=== PATIENT | female | born 1985 | race Caucasian/White ===

== ENCOUNTER 2018-05-07 08:42 | Emergency (ER) | payer OTHER ==
[2018-05-07] MEDS ORDERED: SODIUM CHLORIDE 0.9% 1,000 ML IV ONE (09:23)
[2018-05-07] MEDS ORDERED: GLYCERIN ADULT SUPP PR STA (09:28)
--- NOTE | 2018-05-07 09:32 | ED Physician Documentation ---
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 [facility] yesterday to ER with 2 concerns 1) LMP January and + preg and has abd cramping - no care of any sort so far - no vag bleed 2) constipation for two days after a 2 day plane trip home - tried MOM X 1 s relief - cramps to abd and back with staringing to have BM, no rectal apin Review of Systems Constitutional: denies: Fever, Chills Cardiac: denies: Chest pain / pressure Respiratory: denies: Dyspnea GI: reports: Abdominal Pain, Constipation : reports: LMP (January), Now EGA Musculoskeletal: reports: Back pain Endocrine: denies: Easy bruising / bleeding Immunocompromised: denies: Immunocompromised PD PAST MEDICAL HISTORY - Past Medical History Past Medical History: No - Past Surgical History 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 - Present Medications Home Medications: Ambulatory Orders Medication Instructions Recorded Confirmed Docusate Sodium 250Mg Capsule 250 mg PO DAILY PRN #10 capsule 05/07/18 [Colace 250Mg Capsule] Pnv No.121/Iron/Folic Acid 1 each PO DAILY #30 tablet 05/07/18 [ Multivitamin Tablet] - Allergies Allergies/Adverse Reactions: Allergies Allergy/AdvReac Type Severity Reaction Status Date / Time codeine [Codeine] Allergy Intermediate Emesis Verified 09/24/13 22:08 flu vaccine Allergy Intermediate Rash Uncoded 09/24/13 22:09 - Social History Does the pt smoke?: Yes Smoking Status: Current some day smoker Does the pt drink ETOH?: No Does the pt have substance abuse?: No - Immunizations Immunizations are current?: Yes - POLST Patient has POLST: No PD ED PE NORMAL - Vitals Vital signs reviewed: Yes - Cardiac Cardiac: RRR - Respiratory Respiratory: No respiratory distress - Abdomen Abdomen: Soft, Non tender - Derm Derm: Normal color - Neuro Neuro: Alert and oriented X 3 Results - Vitals Vitals: Vital Signs - 24 hr 05/07/18 05/07/18 08:50 11:20 Temperature 36.2 C L 37.2 C Heart Rate 65 62 Respiratory 16 14 Rate Blood Pressure 124/70 112/74 O2 Saturation 100 100 Oxygen O2 Source Room air - Labs Labs: Laboratory Tests 05/07/18 05/07/18 05/07/18 09:30 09:30 09:30 WBC 7.5 RBC 4.05 L Hgb 13.3 Hct 38.6 MCV 95.3 MCH 32.9 H MCHC 34.5 RDW 13.5 Plt Count 184 MPV 10.6 Neut # (Auto) 5.4 Lymph # (Auto) 1.4 L [place] # (Auto) 0.5 Eos # (Auto) 0.1 Baso # (Auto) 0.0 Absolute Nucleated RBC 0.00 Nucleated RBC % 0.0 Sodium 134 L Potassium 3.6 Chloride 104 Carbon Dioxide 23 Anion Gap 7.0 BUN 6 Creatinine 0.8 Estimated GFR (MDRD) 83 L Glucose 94 Calcium 10.1 HCG, Quant 892640.00 - Rads (name of study) OB sono Radiology: See rad report (live IUP 8+1 EDC 12/16/18) PD MEDICAL DECISION MAKING - ED course ED course: glycerin and mag citrate and colace safe in preg - Sepsis Event Vital Signs: Vital Signs - 24 hr 05/07/18 05/07/18 08:50 11:20 Temperature 36.2 C L 37.2 C Heart Rate 65 62 Respiratory 16 14 Rate Blood Pressure 124/70 112/74 O2 Saturation 100 100 Oxygen O2 Source Room air Departure - Departure Disposition: 01 Home, Self Care Clinical Impression: Qualifiers: Weeks of gestation: 8 weeks Qualified Code(s): Z3A.08 - 8 weeks gestation of Constipation Qualifiers: Constipation type: unspecified constipation type Qualified Code(s): K59.00 - Constipation, unspecified Condition: Good Instructions: ED Constipation, ED Care Follow-Up: [facility] [Provider Group] Prescriptions: Docusate Sodium 250Mg Capsule [Colace 250Mg Capsule] 250 mg PO DAILY PRN #10 capsule PRN Reason: Constipation Pnv No.121/Iron/Folic Acid [ Multivitamin Tablet] 1 each PO DAILY #30 tablet Comments: You are - approx 8 weeks 1 day by ultrasound with a due date of Dec 16 2018 I think the cramps are due to constipation - there is always the concern for a miscarriage but right now the loks fine I think it is safe for you to go home We gave you a laxative that is safe in to drink before you left the ER - it will start to work in about an hour so go straight home After that may safely take a stool softener called colace as needed for constipation But more important than medications is drinking plenty of fluids and eating a diet with druits and vegetables Follow up with [facility] next week I have prescribed vitamins for you
[2018-05-07 09:35] LABS: BASOPHILS % (AUTO) 0.5 %; EOSINOPHILS # (AUTO) 0.1 10^3/uL (0.0-0.7); EOSINOPHILS % (AUTO) 1.5 %; HGB - HEMOGLOBIN 13.3 g/dL (12.0-16.0); LYMPHOCYTES # (AUTO) 1.4 10^3/uL (1.5-3.5); LYMPHOCYTES % (AUTO) 19.2 %; MEAN CORPUSCULAR HEMOGLOBIN 32.9 pg (27.0-31.0); MEAN CORPUSCULAR HGB CONC 34.5 g/dL (32.0-36.0); MEAN CORPUSCULAR VOLUME 95.3 fL (81.0-99.0); MEAN PLATELET VOLUME 10.6 fL (7.9-10.8); MONOCYTES # (AUTO) 0.5 10^3/uL (0.0-1.0); MONOCYTES % (AUTO) 7.1 %; NEUTROPHILS # (AUTO) 5.4 10^3/uL (1.5-6.6); NEUTROPHILS % (AUTO) 71.7 %; PLT - PLATELET COUNT 184 10^3/uL (130-450); RED BLOOD COUNT 4.05 10^6/uL (4.20-5.40); RED CELL DISTRIBUTION WIDTH 13.5 % (12.0-15.0); WHITE BLOOD COUNT 7.5 x10^3/uL (4.8-10.8)
[2018-05-07 09:47] LABS: CALCIUM 10.1 mg/dL (8.5-10.3); CREATININE 0.8 mg/dL (0.4-1.0)
--- NOTE | 2018-05-07 11:12 | Ultrasound Report ---
Procedure Date: 05/07/2018 Accession Number: [id number] / [id number] Procedure: US - OB First Trimester CPT Code: FULL RESULT: EXAM: FIRST TRIMESTER OBSTETRIC ULTRASOUND (Less than 11 weeks) EXAM DATE: 05/07/2018 10:46 AM. CLINICAL HISTORY: LMP January EGA unknown no care. LMP: Unknown. COMPARISONS: None. TECHNIQUE: Transabdominal and transvaginal ultrasound examination with static image documentation. CLINICAL DATES: EGA 8 weeks 1 day with FANG 12/16/2018 based on current ultrasound. LMP unknown. No prior imaging. ASSESSMENT: Gestational Sac: Single intrauterine. Mean gestational sac diameter: 39.4 mm = 9 weeks 1 day. Embryo: CRL (crown-rump length) 17.3 mm = 8 weeks 1 day. Cardiac activity: 152 beats per minute. Yolk sac: 5.1 mm. Amniotic fluid: Not accurately assessed at this gestational age. Early placenta: Not visible at this gestational age. Other: No perigestational fluid collection demonstrated. MATERNAL STRUCTURES: Uterus: Retroverted. Unremarkable. Cervix: Closed. Right Ovary/Adnexa: Unremarkable. The ovary measures 4.2 x 3.1 x 3.4 cm, volume 23.1 cc. Left Ovary/Adnexa: Unremarkable. The ovary measures 2.2 x 2.2 x 1.3 cm, volume 3.2 cc. Free Fluid: Trace. Other: None. IMPRESSION: 1. Single viable intrauterine at EGA 8 weeks 1 day with FANG 12/16/2018 based on crown-rump length. 2. Assigned dating is FANG 12/16/2018 based on current ultrasound. RADIA
[2018-05-07] MEDS ORDERED: MAGNESIUM CITRATE 296 ML BOTTLE PO STA (12:21)
[2018-05-07 12:34] VITALS: BP 122/86
== END 2018-05-07 12:36 | disposition home or self-care (01) ==
LOC: ED 08:42
DX: K59.00 Constipation, unspecified (principal); O99.89 Other specified diseases and conditions complicating pregnancy, childbirth and the puerperium; Z3A.08 8 weeks gestation of pregnancy; F17.200 Nicotine dependence, unspecified, uncomplicated
CPT/HCPCS: 36415; 76801; 76817; 80048; 84702; 85025; 96360; 96361; 99283; A9270

== ENCOUNTER 2018-10-18 10:08 | Observation (INO) | payer OTHER ==
[2018-10-18] MEDS ORDERED: SODIUM CHLORIDE FLUSH 0.9% 10 ML SYRINGE ONE ×2 (10:36→10:59)
[2018-10-18] MEDS ORDERED: LACTATED RINGERS 2,000 ML IV ONE (10:59)
[2018-10-18] MEDS ORDERED: SODIUM CHLORIDE FLUSH 0.9% 10 ML SYRINGE IVP PRN (11:00)
[2018-10-18] MEDS ORDERED: LACTATED RINGERS 1,000 ML IV ONE (11:00)
[2018-10-18 11:11] LABS: BASOPHILS % (AUTO) 0.7 %; EOSINOPHILS # (AUTO) 0.1 10^3/uL (0.0-0.7); EOSINOPHILS % (AUTO) 0.9 %; HGB - HEMOGLOBIN 11.7 g/dL (12.0-16.0); LYMPHOCYTES # (AUTO) 1.3 10^3/uL (1.5-3.5); LYMPHOCYTES % (AUTO) 20.1 %; MEAN CORPUSCULAR HEMOGLOBIN 33.2 pg (27.0-31.0); MEAN CORPUSCULAR HGB CONC 36.2 g/dL (32.0-36.0); MEAN CORPUSCULAR VOLUME 91.6 fL (81.0-99.0); MEAN PLATELET VOLUME 9.2 fL (7.9-10.8); MONOCYTES # (AUTO) 0.5 10^3/uL (0.0-1.0); MONOCYTES % (AUTO) 7.7 %; NEUTROPHILS # (AUTO) 4.7 10^3/uL (1.5-6.6); NEUTROPHILS % (AUTO) 70.6 %; PLT - PLATELET COUNT 190 10^3/uL (130-450); RED BLOOD COUNT 3.54 10^6/uL (4.20-5.40); RED CELL DISTRIBUTION WIDTH 13.1 % (12.0-15.0); WHITE BLOOD COUNT 6.6 x10^3/uL (4.8-10.8)
[2018-10-18] MEDS: ONDANSETRON 4 MG/2 ML VIAL IVP PRN ×2 (11:24→15:37)
[2018-10-18 11:33] LABS: RUPTURE OF MEMBRANES PLUS NEGATIVE (NEGATIVE)
--- NOTE | 2018-10-18 11:37 | ANESTHESIA ---
Pre-Anesthesia VS, & Labs - Diagnosis abruptio placenta - Procedure c section Height 5 ft 2 in Weight (kg) 77.111 kg Body Mass Index 26.5 - NPO >8 hours - Is Patient ?: Yes - Lab Results Current Lab Results: Laboratory Tests 10/18/18 10:53: WBC 6.6, RBC 3.54 L, Hgb 11.7 L, Hct 32.4 L, MCV 91.6, MCH 33.2 H, MCHC 36.2 H, RDW 13.1, Plt Count 190, MPV 9.2, Neut # (Auto) 4.7, Lymph # (Auto) 1.3 L, [place] # (Auto) 0.5, Eos # (Auto) 0.1, Baso # (Auto) 0.0, Absolute Nucleated RBC 0.00, Nucleated RBC % 0.0 Lab results reviewed: Yes Fish Bones: 10/18/18 10:53 Home Medications and Allergies Active Medications Lactated Ringer's (Lr) 1,000 mls @ 999 mls/hr IV ONCE ONE Stop: 10/18/18 12:00 Last Admin: 10/18/18 11:05 Dose: 999 mls/hr Ondansetron HCl (Zofran Inj) 4 mg IVP Q4HR PRN PRN Reason: Nausea / Vomiting Last Admin: 10/18/18 11:24 Dose: 4 mg Sodium Chloride (Normal Saline Flush 0.9%) 10 ml IVP PRN PRN PRN Reason: NEEDED PER PROVIDER ORDERS Allergies/Adverse Reactions: Allergies Allergy/AdvReac Type Severity Reaction Status Date / Time codeine [Codeine] Allergy Intermediate Emesis Verified 09/24/13 22:08 flu vaccine Allergy Intermediate Rash Uncoded 09/24/13 22:09 Anes History & Medical History - Anesthetic History Anesthesia Complications: reports: No previous complications Family history of Anesthesia Complications: Denies Family history of Malignant Hyperthermia: Denies - Medical History Smoking Status: Current some day smoker - Surgical History Gynecologic: section Exam General: Alert, Oriented x3, Cooperative, No acute distress Dental: WNL Mouth Openin Fingerbreadth Neck Mobility: Normal Mallampati classification: II Thyromental Distance: greater than 6 cm Respiratory: Lungs clear, Normal breath sounds, No respiratory distress, No accessory muscle use Cardiovascular: Regular rate, Normal S1, Normal S2, No murmurs Mental/Cognitive Status: Alert/Oriented X3, Normal for patient Cognitive Status: Within normal limits Plan Anesthesia Type: General Consent for Procedure(s) Verified and Reviewed: No Code Status: Attempt Resuscitation ASA classification: 2-Mild systemic disease Is this case an emergency?: Yes
[2018-10-18 11:38] LABS: MUDS CUTOFF CONCENTRATIONS CUTOFF CONC BELOW:
[2018-10-18 11:53] LABS: AMPHETAMINE SCREEN,URINE NEGATIVE (NEGATIVE); BENZODIAZEPINES SCREEN, URINE NEGATIVE (NEGATIVE); COCAINE SCREEN URINE NEGATIVE (NEGATIVE); METHADONE SCREEN, URINE NEGATIVE (NEGATIVE); METHAMPHETAMINES SCREEN, URINE NEGATIVE (NEGATIVE); OPIATE SCREEN, URINE NEGATIVE (NEGATIVE); OXYCODONE SCREEN, URINE NEGATIVE (NEGATIVE); PROPOXYPHENE SCREEN, URINE NEGATIVE (NEGATIVE); TRICYCLIC ANTIDEPRESSANT,URINE NEGATIVE (NEGATIVE)
[2018-10-18 12:10] LABS: CREATININE 0.7 mg/dL (0.4-1.0)
[2018-10-18 12:11] LABS: ALBUMIN 3.1 g/dL (3.2-5.5); BILIRUBIN,TOTAL 0.5 mg/dL (0.2-1.0); CALCIUM 8.8 mg/dL (8.5-10.3); TOTAL PROTEIN 6.1 g/dL (6.7-8.2)
[2018-10-18] MEDS: LACTATED RINGERS 1,000 ML IV SCH ×3 (12:26→20:55)
--- NOTE | 2018-10-18 13:29 | Ultrasound Report ---
Reason: Placental Abruption Procedure Date: 10/18/2018 Accession Number: [id number] / [id number] Procedure: US - OB Limited CPT Code: FULL RESULT: EXAM: LIMITED OBSTETRICAL ULTRASOUND EXAM DATE: 10/18/2018 11:59 AM. CLINICAL HISTORY: Placental abruption. COMPARISON: OB FIRST TRIMESTER 05/07/2018 10:07 AM. TECHNIQUE: Real-time sonographic evaluation of the fetus performed by the character artist. Multiple advertising sales representative static images were saved for review. DATING: Established EGA 31 weeks 4 days with FANG 12/16/2018. GENERAL EVALUATION [place] . Cardiac activity: 152 bpm. movement: Visualized. Presentation: Cephalic. Placenta: Posterior position. Amniotic fluid: Normal. MARQUISE 11.4 cm. MVP 3.7 cm. MATERNAL STRUCTURES The placenta is interrogated in focused fashion in pandey scale and color Doppler. No definite evidence of abruption is identified. IMPRESSION: 1. [place] live intrauterine with gestational age 31 weeks 4 days based on established FANG. 2. No sonographic evidence of abruption of the placenta at this time. RADIA
[2018-10-18] MEDS: HYDROmorphone 2 MG/ML VIAL IVP PRN ×2 (14:18→20:48)
--- NOTE | 2018-10-18 14:39 | HISTORY & PHYSICAL EXAMINATION ---
Date of admission: 10/18/2018 IDENTIFICATION: This is a 33-year-old G4, P3-0-0-3, with a 31 and 5/7 week intrauterine . EDC is 12/16/2018 established by 8 week ultrasound, LMP unknown. HISTORY OF PRESENT ILLNESS: The patient is a patient in the [facility]. She was sent here since the [facility] is currently on divert. Their are 3 beds are full. In any event, the patient states that she started having abdominal pain this morning that had become worse and worse. She experienced some lightheadedness. Here at the hospital, when she was helped to the bedside, she had an episode of nausea, vomiting and hypotension. Her blood pressure showed a systolic in the 70s. The patient is currently in observation and is being given IV fluids right now. She is mildly improved with Zofran and has recently given IV Dilaudid. So far, nonstress test is reactive and category 1. There are no decelerations. There are also no contractions on tocometry. Results so far show a normal CBC with a white count of 6.6 and the H and H 11.7 and 32.4, platelets are 190. Comp panel shows a sodium was 132, potassium 3.6, chloride 107, carbon dioxide 19, BUN 5 and creatinine 0.7, glucose is 85, AST is 18 and ALT is 12. ROM plus was negative. U-tox was negative and a fibronectin was negative as well. I watched the procedures tech do a bedside ultrasound and there is no talon abruption at this time. Baby is noted to be vertex with grossly normal fluid. The patient continues to have her abdominal pain that appears to be cyclical. PAST MEDICAL HISTORY: None. She denies hypertension, diabetes or thyroid disorder. PAST SURGICAL HISTORY: delivery x3. ALLERGIES: 1. CODEINE WHICH SHE HAS NAUSEA AND VOMITING. 2. FLU VACCINE, WHICH SHE HAS A RASH. MEDICATIONS: vitamins. SOCIAL HISTORY: She does have a history of daily smoking. She is employed with the [employer] and found out she was when she was in [facility]. 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 Berry Fish, with whom I spoke to. He states that there was nothing remarkable about the patient's . Unfortunately, the [employer] computer is down and again they are on divert. PAST SURGICAL HISTORY: Three term deliveries, the last [address] Fish. PAST GYNECOLOGICAL HISTORY: She denies any abnormal Pap smears or sexually transmitted diseases. REVIEW OF SYSTEMS: She denies any fevers, chills, diarrhea or constipation. PHYSICAL EXAMINATION: OBJECTIVE: Vital signs are stable. She is afebrile. GENERAL: The patient is a well-developed, well-nourished, female who appears to be pale and a little peaked. CARDIOVASCULAR: Regular. No murmurs, rubs. LUNGS: Lungs are clear to auscultation bilaterally. ABDOMEN: Gravid. ASSESSMENT: 1. A 33-year-old G4, P-3-0-0-3 with 31 and 5/7 week . 2. Abdominal pain of uncertain origin. So far, there is no immediate obstetrical surgical concern of labor or placental abruption. 3. History of delivery x3. PLAN: 1. We will continue observation for the patient as well as continue her IV fluids and IV medications for nausea and pain. 2. We will see if we can have MRI in order to better elucidate the etiology of the patient's pain. 3. Still pending is a urinalysis. TD: 10/18/2018 13:12 DARLEEN
--- NOTE | 2018-10-18 15:23 | MRI Report ---
Reason: abdominal pain Procedure Date: 10/18/2018 Accession Number: [id number] / [id number] Procedure: MRI - Abdomen W/O CPT Code: FULL RESULT: EXAM: MR ABDOMEN AND PELVIS WITHOUT CONTRAST EXAM DATE: 10/18/2018 01:30 PM. CLINICAL HISTORY: Abdominal pain. COMPARISON: None. TECHNIQUE: Multiplanar breath-hold T2 sequences with and without fat suppression obtained through the abdomen and pelvis on an MR scanner. Dedicated 2D MRCP sequences obtained through the biliary and pancreatic ducts. Images obtained without administration of intravenous contrast. Multiphase postcontrast sequences obtained through the pancreas. FINDINGS: The MRCP sequence is not diagnostic due to the patient's inability to sufficiently cooperate. Lung Bases: Unremarkable. Liver: The liver has normal size, morphology and signal. No evidence of mass. The intrahepatic ducts appear normal. CBD and gallbladder: The gallbladder is partially distended and appears normal with no wall thickening or stone. There is less portions of the CBD appear unremarkable. Pancreas: No surrounding edema. Spleen: Unremarkable. Kidneys and Adrenals: The kidneys appear normal with no mass or hydronephrosis. The visualized portions of the adrenal glands are normal. Bowel: The appendix is not seen. The normally displaced cecum was identified and there are no surrounding inflammatory changes, reassuring imaging presentation with nonvisualization of the appendix not unexpected in the absence of appendicitis. The small bowel and colon appear normal with no inflammation or obstruction. Retroperitoneum: The retroperitoneal structures appear normal with no mass or lymphadenopathy. Pelvic organs: Normal appearance of the maternal placenta. Normal appearance of the cervix. The ovaries are not visualized, once again reassuring regarding the possibility of torsion which would cause increasing focal edema and enlargement of the torsed ovary. IMPRESSION: No MRI evidence of cholecystitis, appendicitis or ovarian torsion. The ovaries and appendix are not directly visualized though this is not unexpected in the absence of imaging evidence of local inflammatory or ischemic changes. RADIA
[2018-10-18] MEDS ORDERED: PROMETHAZINE INJ 25 MG in SODIUM CHLORIDE 0.9% 50 ML IV PRN (17:46)
[2018-10-18] MEDS ORDERED: SCOPOLAMINE PATCH TOP PRN (17:47)
[2018-10-18] MEDS ORDERED: LACTATED RINGERS 1,000 ML IV SCH (21:00)
[2018-10-19] MEDS: HYDROmorphone 2 MG/ML VIAL IVP PRN (07:16)
[2018-10-19] MEDS: ONDANSETRON 4 MG/2 ML VIAL IVP PRN (08:03)
[2018-10-19] MEDS ORDERED: LACTATED RINGERS 500 ML IV ONE (08:48)
--- NOTE | 2018-10-19 09:33 | PROVIDER PROGRESS NOTE ---
Subjective - Prog Note Date Prog Note Date: 10/19/18 Prog Note Time: 09:31 - Subjective Pt reports feeling: Improved (Marley sitting in bed, at bedside. States that her pain is better with IV dilaudid but she is getting pruritis. Vomited 3 times last night. Still has cotton mouth feeling. Able to tolerate breakfast so far. Denies sick contacts at home. No bleeding. Baby hasn't moved this AM.) Objective - Vital Signs/Intake & Output Reviewed Vital Signs: Yes Vital Signs: Vital Signs x48h Temp Pulse Resp BP Pulse Ox 10/19/18 07:52 98.1 F 73 18 112/58 L 100 10/19/18 05:30 98.2 F 51 L 16 107/68 100 Intake & Output: Intake & Output 10/16/18 10/17/18 10/18/18 10/19/18 23:59 23:59 23:59 23:59 Intake Total 4598.167 Output Total 1950 900 Balance 2648.167 -900 - Objective General Appearance: positive: No acute distress Abdomen: positive: Non-tender Extremities: positive: Non-tender Neurologic/Psychiatric: positive: Oriented x3, Sensation nml, Mood/affect nml - Lab Results Fish Bones: 10/18/18 10:53 10/18/18 11:20 Other Labs: Lab Results x24hrs 10/18/18 10/18/18 10/18/18 Range/Units 11:20 11:20 10:53 WBC (4.8-10.8) x10^3/uL RBC (4.20-5.40) 10^6/uL Hgb (12.0-16.0) g/dL Hct (37.0-47.0) % MCV (81.0-99.0) fL MCH (27.0-31.0) pg MCHC (32.0-36.0) g/dL RDW (12.0-15.0) % Plt Count (130-450) 10^3/uL MPV (7.9-10.8) fL Neut # (Auto) (1.5-6.6) 10^3/uL Lymph # (Auto) (1.5-3.5) 10^3/uL [place]ren # (Auto) (0.0-1.0) 10^3/uL Eos # (Auto) (0.0-0.7) 10^3/uL Baso # (Auto) (0.0-0.1) 10^3/uL Absolute Nucleated RBC x10^3/uL Nucleated RBC % /100WBC Sodium 132 L (135-145) mmol/L Potassium 3.6 (3.5-5.0) mmol/L Chloride 107 (101-111) mmol/L Carbon Dioxide 19 L (21-32) mmol/L Anion Gap 6.0 (6-13) BUN 5 L (6-20) mg/dL Creatinine 0.7 (0.4-1.0) mg/dL Estimated GFR (MDRD) 96 (>89) Glucose 85 (70-100) mg/dL Calcium 8.8 (8.5-10.3) mg/dL Total Bilirubin 0.5 (0.2-1.0) mg/dL AST 18 (10-42) IU/L ALT 12 (10-60) IU/L Alkaline Phosphatase 102 (42-121) IU/L Total Protein 6.1 L (6.7-8.2) g/dL Albumin 3.1 L (3.2-5.5) g/dL Globulin 3.0 (2.1-4.2) g/dL Albumin/Globulin Ratio 1.0 (1.0-2.2) Membranes Rupture (NEGATIVE) Urine Opiates Screen (NEGATIVE) Ur Oxycodone Screen (NEGATIVE) Urine Methadone Screen (NEGATIVE) Ur Propoxyphene Screen (NEGATIVE) Ur Barbiturates Screen (NEGATIVE) Ur Tricyclics Screen (NEGATIVE) Ur Phencyclidine Scrn (NEGATIVE) Ur Amphetamine Screen (NEGATIVE) U Methamphetamines Scrn (NEGATIVE) U Benzodiazepines Scrn (NEGATIVE) Urine Cocaine Screen (NEGATIVE) U Cannabinoids Screen (NEGATIVE) Fibronectin (NEGATIVE) Blood Type O POSITIVE Blood Type Recheck O POSITIVE Antibody Screen NEGATIVE 10/18/18 10/18/18 10/18/18 Range/Units 10:53 10:50 10:50 WBC 6.6 (4.8-10.8) x10^3/uL RBC 3.54 L (4.20-5.40) 10^6/uL Hgb 11.7 L (12.0-16.0) g/dL Hct 32.4 L (37.0-47.0) % MCV 91.6 (81.0-99.0) fL MCH 33.2 H (27.0-31.0) pg MCHC 36.2 H (32.0-36.0) g/dL RDW 13.1 (12.0-15.0) % Plt Count 190 (130-450) 10^3/uL MPV 9.2 (7.9-10.8) fL Neut # (Auto) 4.7 (1.5-6.6) 10^3/uL Lymph # (Auto) 1.3 L (1.5-3.5) 10^3/uL [place] # (Auto) 0.5 (0.0-1.0) 10^3/uL Eos # (Auto) 0.1 (0.0-0.7) 10^3/uL Baso # (Auto) 0.0 (0.0-0.1) 10^3/uL Absolute Nucleated RBC 0.00 x10^3/uL Nucleated RBC % 0.0 /100WBC Sodium (135-145) mmol/L Potassium (3.5-5.0) mmol/L Chloride (101-111) mmol/L Carbon Dioxide (21-32) mmol/L Anion Gap (6-13) BUN (6-20) mg/dL Creatinine (0.4-1.0) mg/dL Estimated GFR (MDRD) (>89) Glucose (70-100) mg/dL Calcium (8.5-10.3) mg/dL Total Bilirubin (0.2-1.0) mg/dL AST (10-42) IU/L ALT (10-60) IU/L Alkaline Phosphatase (42-121) IU/L Total Protein (6.7-8.2) g/dL Albumin (3.2-5.5) g/dL Globulin (2.1-4.2) g/dL Albumin/Globulin Ratio (1.0-2.2) Membranes Rupture NEGATIVE (NEGATIVE) Urine Opiates Screen (NEGATIVE) Ur Oxycodone Screen (NEGATIVE) Urine Methadone Screen (NEGATIVE) Ur Propoxyphene Screen (NEGATIVE) Ur Barbiturates Screen (NEGATIVE) Ur Tricyclics Screen (NEGATIVE) Ur Phencyclidine Scrn (NEGATIVE) Ur Amphetamine Screen (NEGATIVE) U Methamphetamines Scrn (NEGATIVE) U Benzodiazepines Scrn (NEGATIVE) Urine Cocaine Screen (NEGATIVE) U Cannabinoids Screen (NEGATIVE) Fibronectin NEGATIVE (NEGATIVE) Blood Type Blood Type Recheck Antibody Screen 10/18/18 Range/Units 10:40 WBC (4.8-10.8) x10^3/uL RBC (4.20-5.40) 10^6/uL Hgb (12.0-16.0) g/dL Hct (37.0-47.0) % MCV (81.0-99.0) fL MCH (27.0-31.0) pg MCHC (32.0-36.0) g/dL RDW (12.0-15.0) % Plt Count (130-450) 10^3/uL MPV (7.9-10.8) fL Neut # (Auto) (1.5-6.6) 10^3/uL Lymph # (Auto) (1.5-3.5) 10^3/uL Barren # (Auto) (0.0-1.0) 10^3/uL Eos # (Auto) (0.0-0.7) 10^3/uL Baso # (Auto) (0.0-0.1) 10^3/uL Absolute Nucleated RBC x10^3/uL Nucleated RBC % /100WBC Sodium (135-145) mmol/L Potassium (3.5-5.0) mmol/L Chloride (101-111) mmol/L Carbon Dioxide (21-32) mmol/L Anion Gap (6-13) BUN (6-20) mg/dL Creatinine (0.4-1.0) mg/dL Estimated GFR (MDRD) (>89) Glucose (70-100) mg/dL Calcium (8.5-10.3) mg/dL Total Bilirubin (0.2-1.0) mg/dL AST (10-42) IU/L ALT (10-60) IU/L Alkaline Phosphatase (42-121) IU/L Total Protein (6.7-8.2) g/dL Albumin (3.2-5.5) g/dL Globulin (2.1-4.2) g/dL Albumin/Globulin Ratio (1.0-2.2) Membranes Rupture (NEGATIVE) Urine Opiates Screen NEGATIVE (NEGATIVE) Ur Oxycodone Screen NEGATIVE (NEGATIVE) Urine Methadone Screen NEGATIVE (NEGATIVE) Ur Propoxyphene Screen NEGATIVE (NEGATIVE) Ur Barbiturates Screen NEGATIVE (NEGATIVE) Ur Tricyclics Screen NEGATIVE (NEGATIVE) Ur Phencyclidine Scrn NEGATIVE (NEGATIVE) Ur Amphetamine Screen NEGATIVE (NEGATIVE) U Methamphetamines Scrn NEGATIVE (NEGATIVE) U Benzodiazepines Scrn NEGATIVE (NEGATIVE) Urine Cocaine Screen NEGATIVE (NEGATIVE) U Cannabinoids Screen NEGATIVE (NEGATIVE) Fibronectin (NEGATIVE) Blood Type Blood Type Recheck Antibody Screen Assessment/Plan - Problem List (1) Abdominal pain affecting Impression: 33 yo with a 31w6d IUP. Abdominal pain of uncertain origin, improved. MRI and limited OB U/S are WNL. Labs normal as well. Will switch to oral medications and hopefully discharge to home today.
[2018-10-19] MEDS ORDERED: ONDANSETRON ODT 4 MG TABLET TL PRN (09:35)
[2018-10-19] MEDS ORDERED: HYDROcod/ACETAM 5/325 MG TABLET PO PRN (09:35)
[2018-10-19] MEDS ORDERED: PROMETHAZINE 25 MG TABLET PO PRN (09:36)
[2018-10-19 14:16] VITALS: BP 115/60
--- NOTE | 2018-10-19 14:18 | PROVIDER PROGRESS NOTE ---
Subjective - Prog Note Date Prog Note Date: 10/19/18 Prog Note Time: 14:16 - Subjective Pt reports feeling: Improved Subjective: Marley is improving and ready to go home per OB RN. She uses the [facility] pharmacy. Objective - Vital Signs/Intake & Output Vital Signs: Vital Signs x48h Temp Pulse Resp BP Pulse Ox 10/19/18 13:00 98.2 F 77 16 115/60 100 10/19/18 07:52 98.1 F 73 18 112/58 L 100 Intake & Output: Intake & Output 10/16/18 10/17/18 10/18/18 10/19/18 23:59 23:59 23:59 23:59 Intake Total 4598.167 Output Total 1950 900 Balance 2648.167 -900 - Lab Results Fish Bones: 10/18/18 10:53 10/18/18 11:20 Assessment/Plan - Problem List (1) Abdominal pain affecting Impression: Improved abdominal pain of uncertain etiology Improved nausea and vomiting Discharge to home Rx zofran to [facility] Follow up with Dr. Chance Discharge Plan Disposition: 01 Home, Self Care Condition: Good Diet: Regular Activity Restrictions: Activity as Tolerated Shower Restrictions: No Driving Restrictions: No Weight Bearing: Full Weight (Rx zofran sent to [place] at [facility] via [facility]. Follow up with Dr. Chance.) No Smoking: If you smoke, Please STOP! Call for help.
== END 2018-10-19 14:45 | disposition home or self-care (01) ==
LOC: WFO 10:08 → FBP 10:10 → WFO 11:11 → FBP 11:12
PROVIDERS: ADMIT Obstetrics & Gynecology; ATTEND Obstetrics & Gynecology
DX: O99.89 Other specified diseases and conditions complicating pregnancy, childbirth and the puerperium (principal); R10.9 Unspecified abdominal pain; O34.219 Maternal care for unspecified type scar from previous cesarean delivery; O21.2 Late vomiting of pregnancy; Z3A.31 31 weeks gestation of pregnancy; O26.53 Maternal hypotension syndrome, third trimester; O99.333 Smoking (tobacco) complicating pregnancy, third trimester
CPT/HCPCS: 74181; 76815; 80053; 80306; 82731; 84112; 85025; 86850; 86900; 86901; 87081; 87797; 96365; 96366; 96375; 96376; 99214; G0378; J1170; J3490; J7040; J7120

== ENCOUNTER 2018-11-03 15:34 | Emergency (ER) | payer OTHER ==
[2018-11-03 15:42] VITALS: BP 116/71
[2018-11-03 16:33] LABS: BILIRUBIN,URINE NEGATIVE (NEGATIVE); GLUCOSE, URINE (UA) NEGATIVE (NEGATIVE); KETONES,URINE (UA) 15 mg/dL (NEGATIVE); LEUKOCYTE ESTERASE, URINE NEGATIVE (NEGATIVE); NITRITE,URINE NEGATIVE (NEGATIVE); OCCULT BLOOD,URINE NEGATIVE (NEGATIVE); PH,URINE 5.5 PH (5.0-7.5); PROTEIN,URINE NEGATIVE (NEGATIVE); UROBILINOGEN,URINE 0.2 (NORMAL) E.U./dL (NORMAL)
[2018-11-03 16:35] LABS: CLARITY,URINE CLEAR (CLEAR)
[2018-11-03] MEDS ORDERED: LIDOCAINE VISCOUS 2% 15 ML UDC MM STA (17:04)
[2018-11-03] MEDS ORDERED: MAG HYDROX/AL HYDROX/SIMETH 30 ML UDC PO STA (17:04)
--- NOTE | 2018-11-03 17:48 | ED Physician Documentation ---
History of Present Illness - Stated complaint Stated Complaint: SOA/LIGHTHEADED/30+WKS PREG - Chief complaint Chief Complaint: Resp - History obtained from History obtained from: Patient - Additonal information Additional information: The patient is a 33-year-old female at 34 weeks gestation who presents with nausea and "dry heaves." She reports substernal chest discomfort that is worse with inspiration. She felt her heart racing last night, with associated dizziness. In addition she reports pain with urination today, and abdominal cramps. She denies fever, cough, or vaginal bleeding. She was observed in labor and delivery 2 weeks ago for abdominal pain. She had MRI and OB ultrasound at that time that were within normal limits, and had normal lab values at that time. Review of Systems Constitutional: denies: Fever Ears: denies: Tinnitus/ringing Nose: denies: Congestion Throat: denies: Sore throat Cardiac: reports: Chest pain / pressure (substernal) Respiratory: denies: Cough GI: reports: Abdominal Pain, Nausea, Vomiting ("dry heaves") : reports: Dysuria, Now EGA (34 weeks gestation). 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 - Present Medications Home Medications: Ambulatory Orders Medication Instructions Recorded Confirmed Metoclopramide [Reglan] 11/03/18 Ranitidine HCl [Heartburn Relief] 11/03/18 11/03/18 - Allergies Allergies/Adverse Reactions: Allergies Allergy/AdvReac Type Severity Reaction Status Date / Time codeine [Codeine] Allergy Intermediate Emesis Verified 11/03/18 15:42 flu vaccine Allergy Intermediate Rash Uncoded 11/03/18 15:42 - Social History Does the pt smoke?: Yes Smoking Status: Former smoker Does the pt drink ETOH?: No Does the pt have substance abuse?: No - Immunizations Immunizations are current?: Yes - POLST Patient has POLST: No PD ED PE NORMAL - Vitals Vital signs reviewed: Yes (normal) - General General: Alert and oriented X 3, Well developed/nourished - HEENT HEENT: Atraumatic, Pharynx benign - Neck Neck: No adenopathy, No JVD - Cardiac Cardiac: RRR, No murmur - Respiratory Respiratory: No respiratory distress, Clear bilaterally - Abdomen Abdomen: Soft, Other (Gravid uterus with heart rate of 150. Epigastric tenderness to palpation, without rebound or guarding.) - Back Back: No CVA TTP - Derm Derm: No rash - Extremities Extremities: No edema, No calf tenderness / cord - Neuro Neuro: Alert and oriented X 3, No motor deficit, Normal speech Results - Vitals Vitals: Oxygen O2 Source Room air - EKG (time done) 15:54 Rate: Rate (enter#) (73) Rhythm: Sinus bradycardia [place]: Normal Intervals: Normal CA QRS: Normal Ischemia: Normal ST segments Computer interpretation: Agree with computer - Labs Labs: Laboratory Tests 11/03/18 16:20 Urine Color YELLOW Urine Clarity CLEAR Urine pH 5.5 Ur Specific [place] 1.025 Urine Protein NEGATIVE Urine Glucose (UA) NEGATIVE Urine Ketones 15 H Urine Occult Blood NEGATIVE Urine Nitrite NEGATIVE Urine Bilirubin NEGATIVE Urine Urobilinogen 0.2 (NORMAL) Ur Leukocyte Esterase NEGATIVE Ur Microscopic Review NOT INDICATED Urine Culture Comments NOT INDICATED PD MEDICAL DECISION MAKING - ED course Complexity details: reviewed old records, reviewed results, re-evaluated patient, considered differential, d/w patient ED course: The patient's presentation is most consistent with gastroesophageal reflux disease. Electrocardiogram is normal, with no evidence of ischemic abnormalities. I doubt pulmonary embolus. GI cocktail was administered and it relieved the patient's epigastric symptoms. Urinalysis is negative. I discussed with the patient the diagnosis, symptomatic treatment, as well as potentially worrisome signs or symptoms that should prompt reevaluation. At the time of discharge she is going directly to labor and delivery for monitoring. Labor and delivery nurses were contacted. Departure - Departure Disposition: 01 Home, Self Care Clinical Impression: GERD (gastroesophageal reflux disease) Qualifiers: Esophagitis presence: esophagitis presence not specified Qualified Code(s): K21.9 - Gastro-esophageal reflux disease without esophagitis Qualifiers: Weeks of gestation: 34 weeks Qualified Code(s): Z3A.34 - 34 weeks gestation of Condition: Stable Instructions: ED GERD Follow-Up: Berry Chance MD [Primary Care Provider] - Comments: Prop yourself up on extra pillows to avoid lying flat. You can use liquid antacid, such as Maalox or onto, if you develop recurrent epigastric discomfort. From here to go directly to labor and delivery for monitoring. Return to the emergency department if you develop increasing abdominal pain, increasing difficulty breathing, or otherwise worsening symptoms. Discharge Date/Time: 11/03/18 17:57
== END 2018-11-03 17:57 | disposition home or self-care (01) ==
LOC: ED 15:34
DX: O99.613 Diseases of the digestive system complicating pregnancy, third trimester (principal); K92.89 Other specified diseases of the digestive system; K21.9 Gastro-esophageal reflux disease without esophagitis; O99.89 Other specified diseases and conditions complicating pregnancy, childbirth and the puerperium; R00.1 Bradycardia, unspecified; R10.9 Unspecified abdominal pain; R42 Dizziness and giddiness; Z3A.34 34 weeks gestation of pregnancy; Z87.891 Personal history of nicotine dependence
CPT/HCPCS: 81003; 93005; 99283; A9270; 81001; 87086; 99212

== ENCOUNTER 2018-11-03 17:54 | Outpatient (CLI) | payer OTHER ==
[2018-11-03 18:18] VITALS: BP 127/85
== END 2018-11-03 19:10 | disposition home or self-care (01) ==
LOC: WFO 17:54 → FBP 17:55 → WFO 19:10
PROVIDERS: ATTEND Obstetrics & Gynecology
DX: O99.89 Other specified diseases and conditions complicating pregnancy, childbirth and the puerperium (principal); R10.9 Unspecified abdominal pain; R42 Dizziness and giddiness; Z3A.33 33 weeks gestation of pregnancy
CPT/HCPCS: 99212

== ENCOUNTER 2022-07-08 07:37 | Outpatient (CLI) | payer OTHER ==
--- NOTE | 2022-07-08 10:14 | MRI Report ---
PROCEDURE: Lumbar Spine W/O INDICATIONS: LOW BACK PAIN TECHNIQUE: Noncontrast sagittal T1 spin echo and T2 fast echo, sagittal STIR, axial T1 and T2 fast spin echo thr ough the lumbar spine. In cases with scoliosis, additional coronal T2 fast spin echo may be performe d. COMPARISON: Correlation is made with report only from prior lumbar spine MRI, 07/02/2010 FINDINGS: Image quality: Motion artifact is noted. Alignment and Curvature: There is normal bony alignment. Bone Marrow: Marrow is of normal overall signal. No acute vertebral body compression fractures. Spinal Cord: Conus medullaris terminates at the L1 level. Visualized cord demonstrates normal signa l and size. Paraspinous Soft Tissues: No paravertebral masses. T11-T12: Mild loss of disc height is seen. The disc signal is relatively well preserved. Endplate irr egularity is seen anteriorly. No significant neural foraminal or central canal narrowing can be seen. T12-L1: Normal in appearance. L1-L2: Normal in appearance. L2-L3: Normal in appearance. L3-L4: Normal in appearance. L4-L5: The disc height and disc signal are well preserved. Mild disc bulge is seen. Mild to moder ate facet hypertrophy is seen. No significant neural foraminal or central canal narrowing can be seen . L5-S1: Mild loss of disc height is seen posteriorly. The disc signal is relatively well preserved. Mild disc bulge is seen. Mild facet hypertrophy is seen. Moderate bilateral neuroforaminal narro wing can be seen, left worse than right. No significant central canal narrowing can be seen. IMPRESSION: Mild lower lumbar spine degenerative changes are seen. Reviewed by: Vinayak Villalta MD on 07/08/2022 9:13 AM MISTI Approved by: Vinayak Villalta MD on 07/08/2022 9:13 AM MISTI Station ID: [id number]
== END 2022-07-08 07:38 | disposition home or self-care (01) ==
LOC: DI 07:37
DX: M51.34 Other intervertebral disc degeneration, thoracic region (principal); M47.816 Spondylosis without myelopathy or radiculopathy, lumbar region; M47.817 Spondylosis without myelopathy or radiculopathy, lumbosacral region; M51.37 Other intervertebral disc degeneration, lumbosacral region; M48.07 Spinal stenosis, lumbosacral region

== ENCOUNTER 2022-10-02 11:28 | Emergency (ER) | payer OTHER ==
[2022-10-02 14:57] LABS: CORONAVIRUS 229E-RESP PCR NOT DETECTED; CORONAVIRUS HKU1-RESP PCR NOT DETECTED; CORONAVIRUS NL63-RESP PCR NOT DETECTED; CORONAVIRUS OC43-RESP PCR NOT DETECTED; HUMAN METAPNEUMOVIRUS NOT DETECTED; RHINOVIRUS/ENTEROVIRUS NOT DETECTED; SARS-CoV-2 -RESP PCR PANEL NOT DETECTED
[2022-10-02 14:58] LABS: B. PARAPERTUSSIS- RESP PCR PAN NOT DETECTED; B. PERTUSSIS- RESP PCR PANEL NOT DETECTED; C. PNEUMONIAE- RESP PCR PANEL NOT DETECTED; INFLUENZA A H3- RESP PCR PANEL DETECTED; INFLUENZA B - RESP PCR PANEL NOT DETECTED; M. PNEUMONIAE- RESP PCR PANEL NOT DETECTED; PARAINFLUENZA VIRUS 1 NOT DETECTED; PARAINFLUENZA VIRUS 2 NOT DETECTED; PARAINFLUENZA VIRUS 3 NOT DETECTED; PARAINFLUENZA VIRUS 4 NOT DETECTED; RSV- RESP PCR PANEL NOT DETECTED
[2022-10-02] MEDS ORDERED: KETOROLAC 60 MG/2 ML VIAL IM STA (15:14)
--- NOTE | 2022-10-02 15:16 | ED Physician Documentation ---
PD HPI HEENT - Stated complaint Stated Complaint: HEAD PX/SOA - Chief complaint Chief Complaint: Resp - History obtained from History obtained from: Patient - Additional information Additional information: Otherwise healthy 37-year-old woman got sick on Wednesday, about 60 hours ago with cough, congestion, severe body aches and headache. She has had nauseous this but is not now. She has a poor appetite. Review of Systems Constitutional: reports: Chills, Myalgias, Fatigue Nose: reports: Rhinorrhea / runny nose Throat: reports: Sore throat Respiratory: reports: Cough. 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 - Present Medications Home Medications: Ambulatory Orders Medication Instructions Recorded Confirmed HYDROcod/ACETAM 5/325 [[place] 5/325] 1 - 2 tab PO Q6H PRN #10 tablet 10/02/22 Ibuprofen [Motrin] 600 mg PO Q6H PRN #30 tab 10/02/22 Ondansetron Odt [Zofran] 4 mg TL Q6H PRN #10 tablet 10/02/22 - Allergies Allergies/Adverse Reactions: Allergies Allergy/AdvReac Type Severity Reaction Status Date / Time codeine [Codeine] Allergy Intermediate Emesis Verified 10/02/22 13:39 flu vaccine Allergy Intermediate Rash Uncoded 10/02/22 13:39 - Social History Does the pt smoke?: Yes Smoking Status: Former smoker Does the pt drink ETOH?: No Does the pt have substance abuse?: No - Immunizations Immunizations are current?: Yes - POLST Patient has POLST: No PD ED PE NORMAL - Vitals Vital signs reviewed: Yes - General General: Alert and oriented X 3, No acute distress - HEENT HEENT: PERRL, EOMI - Neck Neck: Supple, no meningeal sign, No bony TTP - Cardiac Cardiac: RRR, No murmur - Respiratory Respiratory: No respiratory distress, Clear bilaterally - Abdomen Abdomen: Non tender - Back Back: No CVA TTP, No spinal TTP - Derm Derm: Normal color, Warm and dry - Extremities Extremities: No edema, No calf tenderness / cord - Neuro Neuro: Alert and oriented X 3, Normal speech Results - Vitals Vitals: Vital Signs - 24 hr 10/02/22 13:34 Temperature 37.3 C Heart Rate 114 H Respiratory 16 Rate Blood Pressure 119/88 H O2 Saturation 98 Oxygen O2 Source Room air - Labs Labs: Laboratory Tests 10/02/22 13:42 Nasal Adenovirus (PCR) NOT DETECTED Nasal B. parapertussis DNA (PCR) NOT DETECTED Nasal Coronavir 229E PCR NOT DETECTED Nasal Coronavir HKU1 PCR NOT DETECTED Nasal Coronavir NL63 PCR NOT DETECTED Nasal Coronavir OC43 PCR NOT DETECTED Nasal Enterovir/Rhinovir PCR NOT DETECTED Nasal Influenza A H3 PCR DETECTED A Nasal Influenza B PCR NOT DETECTED Nasal Parainfluen 1 PCR NOT DETECTED Nasal Parainfluen 2 PCR NOT DETECTED Nasal Parainfluen 3 PCR NOT DETECTED Nasal Parainfluen 4 PCR NOT DETECTED Nasal RSV (PCR) NOT DETECTED Nasal B.pertussis DNA PCR NOT DETECTED Nasal C.pneumoniae (PCR) NOT DETECTED Herbert Human Metapneumo PCR NOT DETECTED Nasal M.pneumoniae (PCR) NOT DETECTED Nasal SARS-CoV-2 (PCR) NOT DETECTED PD MEDICAL DECISION MAKING - ED course ED course: 37-year-old woman with influenza A, no evidence of superinfection or other etiology for her symptoms. She is treated here with IM Toradol and meds for home. She is outside of the window for antiviral treatment. Departure - Departure Disposition: 01 Home, Self Care Clinical Impression: Influenza A Condition: Good Record reviewed to determine appropriate education?: Yes Instructions: ED Flu Prescriptions: Ibuprofen [Motrin] 600 mg PO Q6H PRN #30 tab PRN Reason: Pain HYDROcod/ACETAM 5/325 [[place] 5/325] 1 - 2 tab PO Q6H PRN #10 tablet PRN Reason: Pain Ondansetron Odt [Zofran] 4 mg TL Q6H PRN #10 tablet PRN Reason: Nausea / Vomiting Comments: You were seen here today for influenza A, you are outside of the window for expected efficacy for antiviral medications for influenza. I sent your prescriptions to [facility] in [place]. Quarantine until completely better +24 hours. We expect you to improve over the next 2 to 3 days. I am prescribing a short course of narcotic pain medication for you. These are potentially dangerous and addictive medications that should be used carefully. These medications may constipate you. Take an fgdf-vxi-maqlbqk stool softener (docusate) twice daily with plenty of water while taking these medications. If you go 24 hours without a bowel movement, take tpof-xyg-dislaag miralax, per package instructions. Do not drink or drive while taking these medications. If you received narcotic or sedating medications while in the emergency department, do not drive for 24 hours. Store this medication in a safe, secure place and out of reach of children. It is a violation of federal law to give or sell this medication to another person or to use in a manner other than prescribed. The ED will not refill narcotic prescriptions, including prescriptions lost or stolen. To dispose of unwanted medications: 1. [facility] [address] [facility] in [place] has a medication drop box. They accept prescription medications (in pill form) Wednesday through Wednesday 9:00 a.m. to 5:00 p.m. 2. [facility] accepts prescription medications (in pill form only) for disposal year round. Call for more information. 3. Contact the [facility] for the next [facility] sponsored prescription drug collection event. , [phone], or [phone]; Note that many narcotic pain relievers also contain Tylenol/acetaminophen. Please ensure that your total dose of acetaminophen from all sources does not exceed 3 g (3000 mg) per day.
[2022-10-02 15:32] VITALS: BP 120/78
== END 2022-10-02 15:31 | disposition home or self-care (01) ==
LOC: ED 11:28
DX: J10.1 Influenza due to other identified influenza virus with other respiratory manifestations (principal); R11.0 Nausea; Z87.891 Personal history of nicotine dependence
CPT/HCPCS: 87633; 96372; 99282; 99283

== ENCOUNTER 2022-10-07 10:00 | Outpatient (CLI) | payer OTHER ==
--- NOTE | 2022-10-07 12:36 | MRI Report ---
PROCEDURE: CERVICAL SPINE WO INDICATIONS: CERVICALGIA TECHNIQUE: Noncontrast sagittal T1 spin echo and T2 fast spin echo, sagittal STIR, foraminal oblique sagittal T2 fast spin echo, and axial gradient echo or T2 fast spin echo through the cervical spine. COMPARISON: None. FINDINGS: Image quality: Motion artifact on several sequences especially the STIR sequence limits the exam.. Alignment and Curvature: There is normal bony alignment. Bone Marrow: Marrow demonstrates normal overall signal. Spinal Cord: Visualized spinal cord has normal size and signal. No cerebellar tonsillar herniation. Paraspinous Soft Tissues: No paravertebral masses. Prevertebral soft tissues are normal in thicknes s. C2-C3: No disc bulge. The foramina and central canal are patent. C3-C4: No disc bulge. The foramina and central canal are patent. C4-C5: Left foraminal disc bulge and uncovertebral hypertrophy causes moderate left foraminal stenos is. The right foramen and central canal are patent. C5-C6: Disc space narrowing and endplate degenerative changes with a left foraminal disc bulge and u ncovertebral hypertrophy causes moderate left foraminal stenosis. The right foramen and central canal are patent. C6-C7: No disc bulge. The foramina and central canal are patent. C7-T1: No disc bulge. The foramina and central canal are patent. IMPRESSION: 1. Degenerative disc disease at C4-5 and C5-6 as detailed above causing moderate left foraminal steno sis. 2. No central canal stenosis. 3. No acute abnormality. Reviewed by: Sergey Mueller on 10/07/2022 12:35 PM PST Approved by: Sergey Mueller on 10/07/2022 12:35 PM PST Station ID: [id number]
== END 2022-10-07 10:01 | disposition home or self-care (01) ==
LOC: DI 10:00
PROVIDERS: ATTEND Student in an Organized Health Care Education/Training Program
DX: M48.02 Spinal stenosis, cervical region (principal)

== ENCOUNTER 2024-02-04 09:41 | Outpatient (CLI) | payer OTHER ==
--- NOTE | 2024-02-04 15:09 | MRI Report ---
PROCEDURE: Hip RT WO INDICATIONS: BILATERAL HIP PAIN TECHNIQUE: Noncontrast coronal T1 spin echo and STIR through the bony pelvis. Coronal and axial T2 fast spin ec ho with fat saturation, sagittal T1 spin echo, and oblique axial T2 fast spin echo with fat saturatio n through the hip. COMPARISON: None. FINDINGS: Image quality: Excellent. Bones and joints: Mild prominence of superior anterior right femoral head neck junction is seen with subcortical T2 hyperintense signal which can be seen associated with cam-type femoral acetabular impi ngement. No intraosseous lesions or fractures. No avascular necrosis of the femoral heads. The visu alized lower lumbar spine appears normally aligned. Tendons: Mild distal right gluteus medius and minimus tendinosis is seen at their insertions on great er trochanter.. The iliopsoas tendon appears intact, without adjacent bursal fluid collections. The origin of the hamstring tendon is intact at the ischial tuberosity. Labrum and cartilage: Subtle fraying of superior anterior right hip labrum at 12 to 1:00 position wit h T2 hyperintense signal concerning for subtle superior anterior right hip labral tear. Cartilage yulissa face of the femoral head appears of normal thickness. The alpha angle of the femur is within normal limits at less than 55 degrees. Soft tissues: Visualized muscles demonstrate normal bulk and internal signal. The proximal sciatic neurovascular bundle appears normal adjacent to the hamstring tendons. No free pelvic fluid. Bladde r wall thickness is normal. Genitourinary structures and bowel loops appear normal where visualized. Possible left ovarian cyst is seen measures 3.4 x 2.7 cm in size. IMPRESSION: 1. Suggestion of subtle superior anterior right hip labral tear at 12 to 1:00 position. 2. Mild prominence of superior anterior right femoral head neck junction with subcortical T2 hyperint ense signal which can be seen associated with cam-type femoral acetabular impingement. No fracture or dislocation. No evidence of avascular necrosis. 3. Mild distal right gluteus medius and minimus tendinosis. No other muscle or tendon signal abnormal ities. 4. Incidentally noted of possible left ovarian cyst measures 3.4 x 2.7 cm in size. This can be furthe r worked up with outpatient pelvic ultrasound. Reviewed by: Lester Goode MD on 02/04/2024 3:08 PM PDT Approved by: Lester Goode MD on 02/04/2024 3:08 PM PDT Station ID: [id number]
--- NOTE | 2024-02-04 15:27 | MRI Report ---
PROCEDURE: Hip LT WO INDICATIONS: BILATERAL HIP PAIN TECHNIQUE: Noncontrast coronal T1 spin echo and STIR through the bony pelvis. Coronal and axial T2 fast spin ec ho with fat saturation, sagittal T1 spin echo, and oblique axial T2 fast spin echo with fat saturatio n through the hip. COMPARISON: None. FINDINGS: Image quality: Excellent. Bones and joints: There is no marrow edema. No intraosseous lesions or fractures. No avascular necro sis of the femoral heads. The visualized lower lumbar spine appears normally aligned. Tendons: Distal left gluteus medius and minimus tendinosis at their insertions on greater trochanter is seen, without associated muscle atrophy. The iliopsoas tendon appears intact, without adjacent bu rsal fluid collections. The origin of the hamstring tendon is intact at the ischial tuberosity. Labrum and cartilage: Signal abnormality and fraying of superior anterior labrum at 12 to 1:00 positi on is seen suggestive of superior anterior labral tear. Cartilage surface of the femoral head appears of normal thickness. The alpha angle of the femur is within normal limits at less than 55 degrees. Soft tissues: Visualized muscles demonstrate normal bulk and internal signal. The proximal sciatic neurovascular bundle appears normal adjacent to the hamstring tendons. No free pelvic fluid. Bladde r wall thickness is normal. Genitourinary structures and bowel loops appear normal where visualized. 3 x 2.6 x 3.4 cm cystic structure is noted in left adnexa and may represent left ovarian cysts. Int rauterine device is present. IMPRESSION: 1. Finding is suggestive of superior anterior left hip labral tear at 12 to 1:00 position. 2. Distal left gluteus medius and minimus tendinosis. No other muscle or tendon signal abnormalities. 3. No marrow edema. No fracture or dislocation. No avascular necrosis of femoral head. 4. Intrauterine device is seen. Suggestion of left ovarian cyst as above. Outpatient pelvic ultrasoun d can be done for further evaluation of this area. Reviewed by: Lester Goode MD on 02/04/2024 3:26 PM PDT Approved by: Lester Goode MD on 02/04/2024 3:26 PM PDT Station ID: [id number]
== END 2024-02-04 09:42 | disposition home or self-care (01) ==
LOC: DI 09:41
PROVIDERS: ATTEND General Practice
DX: M67.951 Unspecified disorder of synovium and tendon, right thigh (principal); M67.952 Unspecified disorder of synovium and tendon, left thigh; Z97.5 Presence of (intrauterine) contraceptive device

== ENCOUNTER 2024-02-18 14:08 | Outpatient (CLI) | payer OTHER ==
--- NOTE | 2024-02-18 15:49 | Ultrasound Report ---
PROCEDURE: Transvaginal INDICATIONS: OVARIAN CYST TECHNIQUE: Real-time endovaginal scanning was performed of the pelvic organs, with image documentation. COMPARISON: MRI left hip on February 04, 2024. FINDINGS: Uterus: Uterus is retroverted and normal in size at 6.6 x 4 x 5.6 cm. The myometrium is homogeneous . The endometrium measures 2.1 mm in combined thickness. IUD is appropriately positioned. Cervix an d vagina are within normal limits. Ovaries: The right ovary measures 2 x 2 x 2.6 cm, with a calculated ovarian volume of 5.5 cc. The l eft ovary measures 5.1 x 3.3 x 5.5 cm, with a calculated ovarian volume of 48 cc. The right ovary has a normal sonographic appearance. The left ovary/adnexa demonstrates a complex, heterogeneous cystic and solid lesion measuring 5.4 x 2.8 x 4.2 cm with internal vascularity. On prior pelvic MRI this bernardo sured approximately 3.3 x 3 x 3.2 cm (series 4, image 4). Less than 12 follicles can be seen in each ovary. Other: No pathologic free abdominal or pelvic fluid. IMPRESSION: 1.Compared to MRI dated February 04, 2024, increased size of left heterogeneous complex cystic and solid lesion measuring 5.4 x 2.8 x 4.2 cm, previously 3.3 x 3 x 3.2 cm. Given interval increase in size, f indings are suggestive of interval hemorrhage. Differential includes hemorrhagic cyst, endometrioma o r mass with hemorrhage. Recommend a follow-up pelvic ultrasound in 6-8 weeks to evaluate for interval change. 2.IUD is appropriately positioned. 3.Normal sonographic appearance of the right ovary. Reviewed by: Albert Lucero MD on 02/18/2024 3:48 PM PDT Approved by: Albert Lucero MD on 02/18/2024 3:48 PM PDT Station ID: [id number]
== END 2024-02-18 14:09 | disposition home or self-care (01) ==
LOC: DI 14:08
PROVIDERS: ATTEND General Practice
DX: N83.292 Other ovarian cyst, left side (principal); Z97.5 Presence of (intrauterine) contraceptive device

== ENCOUNTER 2024-03-31 14:35 | Outpatient (CLI) | payer OTHER ==
--- NOTE | 2024-03-31 16:36 | Ultrasound Report ---
PROCEDURE: Transvaginal INDICATIONS: OVARIAN CYST TECHNIQUE: Real-time endovaginal scanning was performed of the pelvic organs, with image documentation. COMPARISON: None ultrasound 02/18/2024. FINDINGS: Uterus: Uterus is retroverted and normal in size at 6.7 x 3.9 x 5.4 cm. The myometrium is homogeneo us. The endometrium measures 4.1 mm in combined thickness. IUD is appropriately positioned Ovaries: The right ovary measures 3.0 x 1.7 x 2 point cm, with a calculated ovarian volume of 5.9 cc . The left ovary measures 4.6 x 2.4 x 2.4 cm, with a calculated ovarian volume of 13.4 cc. The ovar ies have a normal sonographic appearance. Less than 12 follicles can be seen in each ovary. No adne xal masses are seen. No cystic lesions measuring greater than 3 cm. Other: No pathologic free abdominal or pelvic fluid. IMPRESSION: Unremarkable pelvic ultrasound. Previously described heterogeneous left adnexal complex cystic and so lid lesion is no longer visualized. Reviewed by: Sybil Tracy MD, PhD on 03/31/2024 4:35 PM PDT Approved by: Sybil Tracy MD, PhD on 03/31/2024 4:35 PM PDT Station ID: [id number]
== END 2024-03-31 14:36 | disposition home or self-care (01) ==
LOC: DI 14:35
PROVIDERS: ATTEND General Practice
DX: N83.202 Unspecified ovarian cyst, left side (principal)